=== PATIENT | female | born 1975 | race Caucasian/White ===

== ENCOUNTER 2022-04-30 05:33 | Outpatient (CLI) | payer OTHER ==
[~2022-04-30] VITALS: Ht 177.8 cm; Wt 73.2 kg
== END 2022-05-03 13:28 ==
LOC: PREOP 05:33
PROVIDERS: ATTEND Obstetrics & Gynecology
DX: Z01.818 Encounter for other preprocedural examination (principal); N92.0 Excessive and frequent menstruation with regular cycle; N87.0 Mild cervical dysplasia; N84.0 Polyp of corpus uteri

== ENCOUNTER 2022-05-07 08:00 | Day surgery (SDC) | payer OTHER ==
[2022-05-07] VITALS (10 sets, daily range): BP systolic 93–133; BP diastolic 47–89
[~2022-05-07] VITALS: Ht 177.8 cm; Wt 73.2 kg
[2022-05-07] MEDS ORDERED: ceFAZolin INJECTION 1,000 MG in NS (IVPB) 50 ML IV ONE (08:45)
[2022-05-07] MEDS ORDERED: LACTATED RINGERS 1,000 ML IV PRN (08:45)
[2022-05-07 09:40] LABS: BASOPHILS % (AUTO) 1 % (0-10); EOSINOPHILS # (AUTO) 0.1 10^3/uL (0.0-0.3); EOSINOPHILS % (AUTO) 2 % (0-10); HEMATOCRIT 40 % (35-52); HEMOGLOBIN 13.6 g/dL (11.5-16.0); LYMPHOCYTES % (AUTO) 40 % (12-44); MEAN CORPUSCULAR HEMOGLOBIN 31 pg (25-34); MEAN CORPUSCULAR HGB CONC 34 g/dL (32-36); MEAN CORPUSCULAR VOLUME 91 fL (80-99); MEAN PLATELET VOLUME 10.7 fL (9.0-12.2); MONOCYTES # (AUTO) 0.5 10^3/uL (0.0-1.0); MONOCYTES % (AUTO) 10 % (0-12); NEUTROPHILS # (AUTO) 2.4 10^3/uL (1.8-7.8); NEUTROPHILS % (AUTO) 48 % (42-75); PLATELET COUNT 229 10^3/uL (130-400)
[2022-05-07] MEDS ORDERED: BUP/EPI 0.25% 1:200,000 (MARCAINE) 30 ML VIAL ONE (09:47)
[2022-05-07] MEDS ORDERED: SEVOFLURANE (ULTANE) 15 ML INHAL SOLN ONE (09:49)
[2022-05-07] MEDS ORDERED: MIDAZOLAM 2 MG/2 ML (VERSED) VIAL ONE (09:49)
[2022-05-07] MEDS ORDERED: proPOfol 200 MG/20 ML (DIPRIVAN) VIAL IV ONE (09:49)
[2022-05-07] MEDS ORDERED: fentaNYL INJ 100 MCG/2 ML AMP ONE (09:49)
[2022-05-07] MEDS ORDERED: ONDANSETRON 4 MG/2 ML (SDV) Z0FRAN ONE (09:49)
[2022-05-07] MEDS ORDERED: LIDOCAINE PF 2% 5 ML (XYLOCAINE) VIAL ONE (09:49)
[2022-05-07] MEDS ORDERED: ROCURONIUM 10 MG/ML 5 ML SYRINGE IV ONE (09:49)
--- NOTE | 2022-05-07 09:54 | Progress Note-Pre Operative ---
Pre-Operative Progress Note Date of Available H&P: May 07, 2022 Date H&P Reviewed: May 07, 2022 Time H&P Reviewed: 09:54 History & Physical: H&P Reviewed, No changes noted Pre-Operative Diagnosis: Menorrhagia/endometrial polyp RONNIE OTOOLE MD May 07, 2022 09:54
--- NOTE | 2022-05-07 09:55 | Progress Note-Post Operative ---
Post-Operative Progess Note Surgeon (s)/Facility Technician (s) Surgeon RONNIE OTOOLE MD Facility Technician: [facility] Pre-Operative Diagnosis Menorrhagia/endometrial polyp Post-Operative Diagnosis Same with pathology pending Procedure & Operative Findings Date of Procedure 05/07/22 Procedure Performed/Findings Total laparoscopic hysterectomy with bilateral salpingectomy Anesthesia Type General Estimated Blood Loss Estimated blood loss (mL): Minimal Specimens/Packing Specimens Removed Uterus and fallopian tube RONNIE OTOOLE MD May 07, 2022 09:55
[2022-05-07] MEDS ORDERED: PROMETHAZINE INJ 25 MG/ML (PHENERGAN) AMP IM PRN (10:00)
[2022-05-07] MEDS ORDERED: ONDANSETRON 4 MG/2 ML (SDV) Z0FRAN IVP PRN ×2 (10:00→12:00)
[2022-05-07] MEDS ORDERED: D5 LR IV SOLUTION 1,000 ML IV SCH (10:00)
[2022-05-07] MEDS ORDERED: MEPERIDINE (DEMEROL) INJ 100 MG/ML IM PRN (10:00)
[2022-05-07] MEDS ORDERED: KETOROLAC 30 MG/ML VIAL IV SCH ×2 (10:00→18:00)
[2022-05-07] MEDS ORDERED: PHENYLEPHRINE 100 MCG/ML 10 ML (ANESTHESIA) SYR ONE (10:21)
--- NOTE | 2022-05-07 11:52 | Anesthesia-General Post-Op ---
General Patient Condition Mental Status/LOC: Same as Preop Cardiovascular: Satisfactory Nausea/Vomiting: Absent Respiratory: Satisfactory Pain: Controlled Complications: Absent Post Op Complications Complications None Follow Up Care/Instructions Patient Instructions None needed. Anesthesia/Patient Condition Patient Condition Patient is doing well, no complaints, stable vital signs, no apparent adverse anesthesia problems. No complications reported per nursing. PARVEEN GUERRA CRNA May 07, 2022 11:52
[2022-05-07] MEDS ORDERED: KETOROLAC 30 MG/ML VIAL ONE (11:57)
[2022-05-07] MEDS ORDERED: PROMETHAZINE INJ 25 MG/ML (PHENERGAN) AMP IVP ONE (12:00)
[2022-05-07] MEDS ORDERED: morphine INJ 10 MG/ML 1ML (SYR OR VIAL) IVP ONE (12:00)
[2022-05-07] MEDS ORDERED: fentaNYL INJ 100 MCG/2 ML AMP IVP ONE (12:00)
[2022-05-07] MEDS ORDERED: MEPERIDINE (DEMEROL) INJ 50 MG/ML IVP ONE (12:00)
[2022-05-07] MEDS ORDERED: HYDROmorphone 2 MG/ML VIAL (DILAUDID) IV ONE (12:00)
[2022-05-07] MEDS ORDERED: IBUPROFEN 800 MG (MOTRIN) TAB PO SCH (12:00)
[2022-05-07] MEDS ORDERED: morphine INJ 10 MG/ML 1ML (SYR OR VIAL) ONE (12:05)
[2022-05-07] MEDS ORDERED: MEPERIDINE (DEMEROL) INJ 100 MG/ML ONE (12:54)
[2022-05-07] MEDS ORDERED: PROMETHAZINE INJ 25 MG/ML (PHENERGAN) AMP ONE (12:54)
[2022-05-07] MEDS ORDERED: IBUP-1780 PO (13:21)
[2022-05-07] MEDS ORDERED: DOCU100C37 PO (13:21)
[2022-05-07] MEDS ORDERED: OXYC1TAB87 PO (13:21)
--- NOTE | 2022-05-07 13:23 | Discharge Inst-Surgical ---
Discharge Inst-Surgical Depart Medication/Instructions New, Converted or Re-Newed RX: Transmitted to Pharmacy Consults/Follow Up Orders & Referrals Follow Up Appt: Return to clinic in 1 week for suture removal Call to make follow up appt. for patient in 4 weeks. Activity: Rest for 24 hours, than as tolerated. Wound Care: May remove Band-Aid tomorrow. Replace as desired. Keep incisions clean and dry. Wash daily with soap and water. Prescriptions have been sent to patient's pharmacy electronically for Percocet Motrin and Colace. Diet: As tolerated shower or tub bathe as desired. No driving for 24 hours, no alcoholic beverages for 24 hours, and nothing per vagina (no tampons, douching, or intercourse) for 8 weeks. Patient to return to the clinic as soon as possible for: Temperature greater than 101F, Severe Pain, Foul discharge from incision or vagina, Excessive Bleeding (more than a period). Activity Activity as Tolerated: No Diet Discharge Diet: No Restrictions RONNIE OTOOLE MD May 07, 2022 13:23
[2022-05-07] MEDS ORDERED: oxyCODONE/APAP 5/325MG (PERCOCET 5) TABLET PO PRN (13:30)
--- NOTE | 2022-05-07 23:33 | OPERATIVE REPORT ---
DATE OF SERVICE: 05/07/2022 PREOPERATIVE DIAGNOSES: Menometrorrhagia and endometrial polyps. POSTOPERATIVE DIAGNOSES: Menometrorrhagia and endometrial polyps. OPERATIVE PROCEDURE: Total laparoscopic hysterectomy with bilateral salpingectomies. DESCRIPTION OF PROCEDURE: With the patient in the supine position under satisfactory general anesthesia, the patient was repositioned in the dorsal lithotomy position. The patient was prepped and draped in the usual fashion for abdominal and vaginal surgery using da Vipin assistance. Weighted speculum placed in the posterior fornix of the vagina, cervix exposed and grasped anteriorly with single tooth tenaculum. The uterus was sounded to 9.5 cm with uterine sound. The cervix was then serially dilated with Keyshawn dilators to accommodate a DEEP II manipulator, which was placed using a 6 mm x 8 cm uterine probe and a 35 mm colpotomy ring. Sutures of #1 Vicryl were placed at 3 and 9 o'clock position of the cervix to fix the uterus to the manipulator. Busby catheter was placed in the urinary bladder. The tenaculum and speculum were removed and the patient was brought in low dorsal lithotomy position. A 12 mm incision was made 10 cm superior to the umbilicus. Veress needle was placed through that incision into the abdominal cavity and correct placement confirmed with water drop test. The abdomen was insufflated with 2.4 liters of carbon dioxide and a 12 mm port was placed through the initial incision. Laparoscope was introduced. The abdominal wall was transilluminated, 8 mm ports were placed 8 cm lateral to the umbilicus through incisions in both sides. The patient was placed in Trendelenburg allowing the bowel, was peeled partially of the pelvis. The da Vipin column was advanced on the patient and docked. The operative instruments placed in the left lateral portion and I retired to the da Vipin console. At the console, using the vessel sealer on the right and a bipolar fenestrated grasper on the left, the pelvis was examined. Both fallopian tubes showed evidence of remote tubal sterilization. Both proximal portions of fallopian tubes demonstrated hydrosalpinx. The uterus was somewhat enlarged and boggy and somewhat mottled in appearance consistent with adenomyosis. The laparoscope was rotated. The appendix was identified. It was a small normal vermiform appendix and was left in situ. Laparoscope was brought back to the pelvis. The right fallopian tube was grasped and elevated. The mesosalpinx was clamped, cauterized, and divided across to the utero-ovarian pedicle, which was clamped, cauterized, and divided as well. That dissection was carried across the round ligament, down the broad ligament onto the cardinal ligament. Same procedure performed on the left with the same result. The distal portion of the fallopian tube was detached and it was removed separately later. The anterior lower uterine segment was exposed using a monopolar shear. The bladder peritoneum was divided. The bladder was carefully dissected down off the lower uterine segment and then colpotomy incision was started at 12 o'clock position onto the colpotomy ring. That incision was continued circumferentially until the entire colpotomy ring was exposed. This allowed then the removal of the uterus with fallopian tubes still attached, to be extracted through the vagina. The detached portion of left fallopian tube was placed in the vagina for extraction later. The vaginal cuff was now closed with a V-Loc barbed suture in the usual manner, taking care to ensure inclusion of the uterine vessel pedicles bilaterally. Hemostasis was complete. Both ureters were seen to be peristalsing before, during and now again after the procedure. With hemostasis assured, no remaining abnormal pathology. The operative instruments were removed as were the ports. The abdomen was evacuated of the insufflated gas in the process of removing the ports. The skin incisions were closed with 3-0 nylon sutures. The fascia at the supraumbilical incision was closed with a [id number] suture of 2-0 Vicryl. Speculum was replaced in the vagina. The vaginal cuff was examined and it was completely reapproximated and completely hemostatic. With sponge and needle counts were correct, hemostasis assured and blood loss was minimal, the patient was uneventfully awakened from her general anesthesia and transferred to the recovery room in stable condition. Job ID: [id number] DocumentID: [id number] Dictated Date: 05/07/2022 22:44:01 Circulation Sales Representative Date: 05/07/2022 23:31:00 Dictated By: RONNIE OTOOLE MD
[2022-05-08] MEDS ORDERED: DOCUSATE SODIUM 100 MG (COLACE) CAP PO SCH (09:00)
== END 2022-05-07 17:42 | disposition home or self-care (01) ==
LOC: SDC 08:00 → WS 12:35 → SDC 17:42
PROVIDERS: ATTEND Obstetrics & Gynecology
DX: D25.1 Intramural leiomyoma of uterus (principal); N84.0 Polyp of corpus uteri; N80.03 Adenomyosis of the uterus; N80.202 Endometriosis of left fallopian tube, unspecified depth; N83.8 Other noninflammatory disorders of ovary, fallopian tube and broad ligament; N87.0 Mild cervical dysplasia; Z87.891 Personal history of nicotine dependence
CPT/HCPCS: 36415; 84703; 85025; 87081; 94664